=== PATIENT | female | born 1990 | race Caucasian/White ===

== ENCOUNTER 2017-11-07 13:07 | Emergency (ER) | payer MEDICAID ==
[~2017-11-07] VITALS: Ht 157.5 cm; Wt 82.6 kg
[2017-11-07 13:13] VITALS: BP 101/57
[2017-11-07] MEDS ORDERED: DEXAMETHASONE 4 MG TABLET ONE (13:55)
[2017-11-07] MEDS ORDERED: DEXAMETHASONE 4 MG TABLET PO ONE (14:00)
== END 2017-11-07 14:17 | disposition home or self-care (01) ==
LOC: ED 13:44
DX: J03.00 Acute streptococcal tonsillitis, unspecified (principal); F17.210 Nicotine dependence, cigarettes, uncomplicated
CPT/HCPCS: 99283

== ENCOUNTER 2018-01-01 13:13 | Inpatient (IN) | payer MEDICAID, OTHER ==
[~2018-01-01] VITALS: Ht 157.5 cm; Wt 77.1 kg
[2018-01-01 14:31] LABS: CULTURE INDICATED? YES; MICROSCOPIC INDICATED
[2018-01-01] MEDS ORDERED: SODIUM CHLORIDE FLUSH 10ML SYR IVF ONE (15:00)
[2018-01-01] MEDS ORDERED: KETOROLAC 30 MG/1 ML IVPush ONE (15:00)
[2018-01-01] MEDS ORDERED: KETOROLAC 30 MG/1 ML ONE (15:03)
[2018-01-01 15:09] LABS: BASOPHILS # (AUTO) 0.05 x10^3/uL (0-0.1); BASOPHILS % (AUTO) 0 % (0-1); EOSINOPHILS # (AUTO) 0.03 x10^3/uL (0-0.4); EOSINOPHILS % (AUTO) 0 % (1-7); LYMPHOCYTES # (AUTO) 1.35 x10^3/uL (1-3.4); LYMPHOCYTES % (AUTO) 10 % (22-44); MD NO; MEAN CORPUSCULAR HEMOGLOBIN 31.7 pg (27.0-34.8); MEAN CORPUSCULAR HGB CONC 33.8 g/dL (32.4-35.8); MEAN CORPUSCULAR VOLUME 93.7 fL (80-100); MEAN PLATELET VOLUME 9.1 fL (7.4-10.4); MONOCYTES # (AUTO) 0.93 x10^3/uL (0.2-0.8); MONOCYTES % (AUTO) 7 % (2-9); NEUTROPHILS # (AUTO) 11.25 x10^3/uL (1.8-6.8); NEUTROPHILS % (AUTO) 83 % (42-75); PLATELET COUNT 206 x10^3/uL (130-400); RED BLOOD COUNT 4.84 x10^6/uL (3.82-5.3); RED CELL DISTRIBUTION WIDTH 13.2 % (9.6-15.2)
[2018-01-01 15:17] LABS: ALANINE AMINOTRANSFERASE 21 U/L (12-78); ALBUMIN 3.6 g/dL (3.4-5.0); ANION GAP 11 mmol/L (5-15); CALCIUM 8.7 mg/dL (8.5-10.1); CHLORIDE 102 mmol/L (98-107); CREATININE 0.76 mg/dL (0.55-1.02)
[2018-01-01 15:20] LABS: ALKALINE PHOSPHATASE 82 U/L (45-117); BILIRUBIN,TOTAL 1.1 mg/dL (0.2-1.0); TOTAL PROTEIN 7.6 g/dL (6.4-8.2)
[2018-01-01] MEDS ORDERED: KETOROLAC 30 MG/1 ML IM ONE (15:30)
[2018-01-01] MEDS: SODIUM CHLORIDE 0.9% 1,000 ML IV SCH ×5 (16:28→23:55)
[2018-01-01] MEDS ORDERED: morphine SULFATE 10 MG/ML, 1ML IVPush PRN (16:30)
[2018-01-01] MEDS ORDERED: ACETAMINOPHEN 325 MG TABLET PO PRN (16:30)
[2018-01-01] MEDS ORDERED: SODIUM CHLORIDE 0.9% 1,000ML IVBOLUS ONE (16:30)
[2018-01-01] MEDS ORDERED: ENALAPRILAT 1.25 MG/ML, 2ML IVPush PRN (16:30)
[2018-01-01] MEDS ORDERED: HYDROcodone/APAP 5/325 TABLET PO PRN (16:30)
[2018-01-01] MEDS ORDERED: CEFTRIAXONE PMX 1GM/50ML 50 ML IVPB ONE (16:30)
[2018-01-01] MEDS ORDERED: ONDANSETRON 2MG/ML, 2ML IVPush PRN (16:30)
[2018-01-01] MEDS ORDERED: CEFTRIAXONE PMX 1GM/50ML 50 ML ONE (16:48)
[2018-01-01 17:02] LABS: INTERNATIONAL NORMALIZED RATIO 1.05 (0.93-1.1); PROTHROMBIN TIME 10.8 Seconds (9.6-11.5)
[2018-01-01 17:08] VITALS: BP 100/61
[2018-01-01 17:18] LABS: HCG UR SG 1.019 (1.003-1.030)
[2018-01-01] MEDS: NICOTINE 21 MG/24 HR PATCH.TD24 TD SCH (17:53)
[2018-01-01] MEDS: AMPICILLIN/SULBACTAM 3 GM in SODIUM CHLORIDE 0.9% 100 ML IV SCH ×2 (17:53→23:37)
[2018-01-01] MEDS: HEPARIN 5,000 UNITS/ML, 1ML SQ SCH (17:54)
[2018-01-01 20:43] VITALS: BP_SYST 90; BP_SYST 92; BP_DIAS 57; BP_DIAS 60
[2018-01-01 21:48] VITALS: BP 96/59
[2018-01-02] MEDS: ONDANSETRON ODT 4 MG PO PRN (00:23)
[2018-01-02] MEDS: HEPARIN 5,000 UNITS/ML, 1ML SQ SCH ×3 (01:57→17:15)
[2018-01-02 03:18] VITALS: BP 98/62
[2018-01-02] MEDS: SODIUM CHLORIDE 0.9% 1,000 ML IV SCH ×4 (03:24→22:31)
[2018-01-02] MEDS: AMPICILLIN/SULBACTAM 3 GM in SODIUM CHLORIDE 0.9% 100 ML IV SCH ×4 (05:04→23:52)
[2018-01-02 05:08] VITALS: BP 91/56
[2018-01-02 05:30] LABS: BASOPHILS # (AUTO) 0.02 x10^3/uL (0-0.1); BASOPHILS % (AUTO) 0 % (0-1); EOSINOPHILS # (AUTO) 0.02 x10^3/uL (0-0.4); EOSINOPHILS % (AUTO) 0 % (1-7); LYMPHOCYTES # (AUTO) 1.74 x10^3/uL (1-3.4); LYMPHOCYTES % (AUTO) 15 % (22-44); MD NO; MEAN CORPUSCULAR HEMOGLOBIN 31.9 pg (27.0-34.8); MEAN CORPUSCULAR HGB CONC 33.8 g/dL (32.4-35.8); MEAN CORPUSCULAR VOLUME 94.4 fL (80-100); MEAN PLATELET VOLUME 9.1 fL (7.4-10.4); MONOCYTES # (AUTO) 1.15 x10^3/uL (0.2-0.8); MONOCYTES % (AUTO) 10 % (2-9); NEUTROPHILS % (AUTO) 76 % (42-75); PLATELET COUNT 179 x10^3/uL (130-400); RED BLOOD COUNT 4.21 x10^6/uL (3.82-5.3); RED CELL DISTRIBUTION WIDTH 13.4 % (9.6-15.2)
[2018-01-02 05:38] LABS: CHLORIDE 110 mmol/L (98-107)
[2018-01-02 05:45] LABS: ALANINE AMINOTRANSFERASE 17 U/L (12-78); ALBUMIN 2.6 g/dL (3.4-5.0); ALKALINE PHOSPHATASE 65 U/L (45-117); ANION GAP 6 mmol/L (5-15); BILIRUBIN,TOTAL 0.6 mg/dL (0.2-1.0); CALCIUM 7.6 mg/dL (8.5-10.1); CREATININE 0.64 mg/dL (0.55-1.02)
[2018-01-02 07:09] VITALS: BP 97/62
[2018-01-02 12:21] VITALS: BP 92/59
[2018-01-02] MEDS: NICOTINE 21 MG/24 HR PATCH.TD24 TD SCH (17:55)
[2018-01-02 19:57] VITALS: BP 92/57
[2018-01-03] MEDS: HEPARIN 5,000 UNITS/ML, 1ML SQ SCH ×3 (02:00→17:34)
[2018-01-03 02:21] VITALS: BP 91/60
[2018-01-03] MEDS: SODIUM CHLORIDE 0.9% 1,000 ML IV SCH ×3 (05:40→22:11)
[2018-01-03] MEDS: AMPICILLIN/SULBACTAM 3 GM in SODIUM CHLORIDE 0.9% 100 ML IV SCH (05:40)
[2018-01-03 06:05] LABS: BASOPHILS # (AUTO) 0.04 x10^3/uL (0-0.1); BASOPHILS % (AUTO) 0 % (0-1); EOSINOPHILS % (AUTO) 1 % (1-7); LYMPHOCYTES # (AUTO) 2.04 x10^3/uL (1-3.4); LYMPHOCYTES % (AUTO) 17 % (22-44); MD NO; MEAN CORPUSCULAR HEMOGLOBIN 32.2 pg (27.0-34.8); MEAN CORPUSCULAR VOLUME 94.8 fL (80-100); MEAN PLATELET VOLUME 9.7 fL (7.4-10.4); MONOCYTES # (AUTO) 1.06 x10^3/uL (0.2-0.8); MONOCYTES % (AUTO) 9 % (2-9); NEUTROPHILS # (AUTO) 9.08 x10^3/uL (1.8-6.8); NEUTROPHILS % (AUTO) 74 % (42-75); PLATELET COUNT 136 x10^3/uL (130-400); RED CELL DISTRIBUTION WIDTH 13.3 % (9.6-15.2)
[2018-01-03 06:11] LABS: ALBUMIN 2.4 g/dL (3.4-5.0); ANION GAP 7 mmol/L (5-15); CALCIUM 8.3 mg/dL (8.5-10.1); CHLORIDE 110 mmol/L (98-107)
[2018-01-03 06:16] LABS: ALANINE AMINOTRANSFERASE 15 U/L (12-78); ALKALINE PHOSPHATASE 65 U/L (45-117); BILIRUBIN,TOTAL 0.5 mg/dL (0.2-1.0); CREATININE 0.53 mg/dL (0.55-1.02); TOTAL PROTEIN 5.8 g/dL (6.4-8.2)
[2018-01-03 07:16] VITALS: BP 103/70
[2018-01-03] MEDS: CEFTRIAXONE PMX 1GM/50ML 50 ML IV SCH (07:29)
[2018-01-03 12:28] VITALS: BP 113/75
[2018-01-03] MEDS: NICOTINE 21 MG/24 HR PATCH.TD24 TD SCH (13:15)
[2018-01-03] MEDS: OXYcodone/APAP 7.5/325MG TABLET PO PRN ×2 (13:29→20:06)
[2018-01-03] MEDS ORDERED: LIDOCAINE 2% VISCOUS 15 ML UDC MM PRN (13:30)
[2018-01-03 19:11] VITALS: BP 106/71
[2018-01-04 01:16] VITALS: BP 101/65
[2018-01-04] MEDS: HEPARIN 5,000 UNITS/ML, 1ML SQ SCH ×2 (02:00→09:21)
[2018-01-04 06:02] LABS: MEAN CORPUSCULAR HEMOGLOBIN 31.2 pg (27.0-34.8); MEAN CORPUSCULAR VOLUME 94.5 fL (80-100); RED BLOOD COUNT 3.77 x10^6/uL (3.82-5.3); RED CELL DISTRIBUTION WIDTH 13.4 % (9.6-15.2)
[2018-01-04 06:08] LABS: ALANINE AMINOTRANSFERASE 15 U/L (12-78); ALBUMIN 2.4 g/dL (3.4-5.0); ANION GAP 8 mmol/L (5-15); CALCIUM 8.1 mg/dL (8.5-10.1); CHLORIDE 109 mmol/L (98-107); CREATININE 0.44 mg/dL (0.55-1.02)
[2018-01-04 06:10] LABS: ALKALINE PHOSPHATASE 64 U/L (45-117); BILIRUBIN,TOTAL 0.4 mg/dL (0.2-1.0); TOTAL PROTEIN 5.9 g/dL (6.4-8.2)
[2018-01-04 06:18] LABS: BASOPHILS % (AUTO) 1 % (0-1); EOSINOPHILS # (AUTO) 0.35 x10^3/uL (0-0.4); EOSINOPHILS % (AUTO) 4 % (1-7); LYMPHOCYTES % (AUTO) 30 % (22-44); MD SCAN; MEAN PLATELET VOLUME 9.9 fL (7.4-10.4); MONOCYTES # (AUTO) 0.57 x10^3/uL (0.2-0.8); MONOCYTES % (AUTO) 7 % (2-9); NEUTROPHILS # (AUTO) 5.07 x10^3/uL (1.8-6.8); NEUTROPHILS % (AUTO) 58 % (42-75); PLATELET COUNT 179 x10^3/uL (130-400)
[2018-01-04 07:12] VITALS: BP 111/65
[2018-01-04] MEDS: CEFTRIAXONE PMX 1GM/50ML 50 ML IV SCH (07:26)
[2018-01-04] MEDS: ONDANSETRON ODT 4 MG PO PRN (09:33)
[2018-01-04] MEDS: SULFAMETH./TRIMETHOPRIM DS 800MG/160MG TABLET PO SCH ×2 (11:07→20:57)
[2018-01-04 12:26] VITALS: BP 103/70
[2018-01-04] MEDS ORDERED: HEPARIN 25,000 UNITS/500ML PMX 500 ML IV PRN (15:30)
[2018-01-04] MEDS ORDERED: HEPARIN 5,000 UNITS/ML, 1ML IV PRN (15:30)
[2018-01-04] MEDS ORDERED: HEPARIN 5,000 UNITS/ML, 1ML IV ONE (15:30)
[2018-01-04] MEDS: NICOTINE 21 MG/24 HR PATCH.TD24 TD SCH (17:07)
[2018-01-04 19:06] VITALS: BP 93/60
[2018-01-05 01:04] VITALS: BP 104/69
[2018-01-05] MEDS: OXYcodone/APAP 7.5/325MG TABLET PO PRN (01:29)
[2018-01-05] MEDS: ONDANSETRON ODT 4 MG PO PRN (01:34)
[2018-01-05] MEDS: ENOXAPARIN 80 MG/0.8 ML SQ SCH ×2 (07:05→19:39)
[2018-01-05 07:26] VITALS: BP 99/68
[2018-01-05] MEDS ORDERED: WARFARIN 10 MG TABLET PO-COUM ONE ×2 (07:30→18:00)
[2018-01-05 07:39] LABS: INTERNATIONAL NORMALIZED RATIO 1.02 (0.93-1.1); PROTHROMBIN TIME 10.5 Seconds (9.6-11.5)
[2018-01-05] MEDS: SULFAMETH./TRIMETHOPRIM DS 800MG/160MG TABLET PO SCH ×2 (10:58→19:39)
[2018-01-05] MEDS: WARFARIN HIGH DOSE PROTOCOL XX SCH (12:00)
[2018-01-05 14:23] VITALS: BP 97/66
[2018-01-05] MEDS: NICOTINE 21 MG/24 HR PATCH.TD24 TD SCH (17:40)
[2018-01-05 19:48] VITALS: BP 107/72
[2018-01-06 01:21] VITALS: BP 114/81
[2018-01-06 05:36] LABS: INTERNATIONAL NORMALIZED RATIO 1.15 (0.93-1.1); PROTHROMBIN TIME 11.8 Seconds (9.6-11.5)
[2018-01-06] MEDS: ENOXAPARIN 80 MG/0.8 ML SQ SCH ×2 (07:52→19:24)
[2018-01-06 08:03] VITALS: BP 105/75
[2018-01-06] MEDS: SULFAMETH./TRIMETHOPRIM DS 800MG/160MG TABLET PO SCH ×2 (08:45→19:24)
[2018-01-06] MEDS: NICOTINE 21 MG/24 HR PATCH.TD24 TD SCH (11:49)
[2018-01-06] MEDS: WARFARIN HIGH DOSE PROTOCOL XX SCH (12:00)
[2018-01-06 14:42] VITALS: BP 113/78
[2018-01-06] MEDS ORDERED: WARFARIN 7.5 MG TABLET PO-COUM ONE (18:00)
[2018-01-06 19:40] VITALS: BP 123/85
[2018-01-07 03:30] VITALS: BP 105/74
[2018-01-07 05:38] LABS: INTERNATIONAL NORMALIZED RATIO 2.36 (0.93-1.1); PROTHROMBIN TIME 23.9 Seconds (9.6-11.5)
[2018-01-07 07:23] VITALS: BP 96/61
[2018-01-07] MEDS: SULFAMETH./TRIMETHOPRIM DS 800MG/160MG TABLET PO SCH ×2 (08:08→19:48)
[2018-01-07] MEDS: ENOXAPARIN 80 MG/0.8 ML SQ SCH ×2 (08:08→19:48)
[2018-01-07] MEDS ORDERED: WARFARIN 2.5 MG TABLET PO-COUM ONE ×2 (12:00→18:00)
[2018-01-07] MEDS: WARFARIN HIGH DOSE PROTOCOL XX SCH (12:00)
[2018-01-07] MEDS: NICOTINE 21 MG/24 HR PATCH.TD24 TD SCH (12:25)
[2018-01-07 14:14] VITALS: BP 112/75
[2018-01-07 19:09] VITALS: BP 97/64
[2018-01-07 21:08] LABS: CLOSTRIDIUM DIFFICILE ANTIGEN POSITIVE; CLOSTRIDIUM DIFFICILE TOXIN NEGATIVE (Negative)
[2018-01-08 01:51] VITALS: BP 98/62
[2018-01-08 06:37] LABS: INTERNATIONAL NORMALIZED RATIO 3.57 (0.93-1.1); PROTHROMBIN TIME 35.9 Seconds (9.6-11.5)
[2018-01-08 08:13] VITALS: BP 109/72
[2018-01-08] MEDS: SULFAMETH./TRIMETHOPRIM DS 800MG/160MG TABLET PO SCH ×2 (09:03→20:56)
[2018-01-08] MEDS: metroNIDAZOLE 500 MG TABLET PO SCH ×3 (11:30→20:56)
[2018-01-08] MEDS: WARFARIN HIGH DOSE PROTOCOL XX SCH (12:00)
[2018-01-08] MEDS: NICOTINE 21 MG/24 HR PATCH.TD24 TD SCH (12:58)
[2018-01-08 14:45] VITALS: BP 105/74
[2018-01-08] MEDS ORDERED: WARFARIN 1 MG TABLET PO-COUM ONE (18:00)
[2018-01-08 19:46] VITALS: BP 110/74
[2018-01-09 03:55] VITALS: BP 98/64
[2018-01-09 07:18] LABS: BASOPHILS # (AUTO) 0.12 x10^3/uL (0-0.1); BASOPHILS % (AUTO) 2 % (0-1); EOSINOPHILS # (AUTO) 0.27 x10^3/uL (0-0.4); EOSINOPHILS % (AUTO) 4 % (1-7); HEMOGRAM NOTE RECHECKED; LYMPHOCYTES # (AUTO) 2.52 x10^3/uL (1-3.4); LYMPHOCYTES % (AUTO) 36 % (22-44); MD NO; MEAN CORPUSCULAR HEMOGLOBIN 31.2 pg (27.0-34.8); MEAN CORPUSCULAR HGB CONC 33.6 g/dL (32.4-35.8); MEAN CORPUSCULAR VOLUME 92.6 fL (80-100); MEAN PLATELET VOLUME 9.2 fL (7.4-10.4); MONOCYTES # (AUTO) 0.54 x10^3/uL (0.2-0.8); MONOCYTES % (AUTO) 8 % (2-9); NEUTROPHILS # (AUTO) 3.66 x10^3/uL (1.8-6.8); NEUTROPHILS % (AUTO) 51 % (42-75); PLATELET COUNT 323 x10^3/uL (130-400); RED BLOOD COUNT 4.87 x10^6/uL (3.82-5.3); RED CELL DISTRIBUTION WIDTH 13.4 % (9.6-15.2)
[2018-01-09 07:33] LABS: INTERNATIONAL NORMALIZED RATIO 1.84 (0.93-1.1); PROTHROMBIN TIME 18.7 Seconds (9.6-11.5)
[2018-01-09 07:53] VITALS: BP 105/74
[2018-01-09] MEDS: metroNIDAZOLE 500 MG TABLET PO SCH ×2 (09:00→15:46)
[2018-01-09] MEDS ORDERED: WARF2TAB PO-COUM (10:33)
[2018-01-09] MEDS ORDERED: SULF-169 PO (10:33)
[2018-01-09] MEDS ORDERED: ENOX60SY5 SC (10:33)
[2018-01-09] MEDS ORDERED: METR500T PO (10:33)
[2018-01-09] MEDS: SULFAMETH./TRIMETHOPRIM DS 800MG/160MG TABLET PO SCH (10:37)
[2018-01-09 14:30] VITALS: BP 105/70
[2018-01-09] MEDS ORDERED: WARFARIN 2 MG TABLET PO-COUM ONE (18:00)
== END 2018-01-09 16:13 | disposition home or self-care (01) | DRG 872 ==
LOC: ED 15:15 → EDIP 16:54 → 3NE 17:03
PROVIDERS: ADMIT Internal Medicine; ATTEND Internal Medicine
DX: A41.9 Sepsis, unspecified organism (principal); N10 Acute pyelonephritis; E87.1 Hypo-osmolality and hyponatremia; A04.72 Enterocolitis due to Clostridium difficile, not specified as recurrent; I82.622 Acute embolism and thrombosis of deep veins of left upper extremity; B96.20 Unspecified Escherichia coli [E. coli] as the cause of diseases classified elsewhere; R74.8 Abnormal levels of other serum enzymes; F17.210 Nicotine dependence, cigarettes, uncomplicated; Z90.89 Acquired absence of other organs; Z79.01 Long term (current) use of anticoagulants
CPT/HCPCS: 36415; 74176; 80053; 81001; 81025; 83605; 85025; 85520; 85610; 85730; 87040; 87077; 87086; 87186; 87324; 93970; 96372; 99285; G0378; J0295; J0696; J1644; J1650; J1885; J2405; Q0162; J7030

== ENCOUNTER 2020-11-20 22:02 | Emergency (ER) | payer MEDICAID ==
[~2020-11-20] VITALS: Ht 157.5 cm; Wt 63.0 kg
[~2020-11-20 22:02] MED LIST: ENOX60SY5 SC; METR500T PO; SULF-169 PO; WARF2TAB PO-COUM
[2020-11-20 22:04] VITALS: BP 100/76
== END 2020-11-20 22:38 | disposition left against medical advice (07) ==
LOC: ED 22:15
DX: L29.9 Pruritus, unspecified (principal); Z53.21 Procedure and treatment not carried out due to patient leaving prior to being seen by health care provider